=== PATIENT | female | born 1980 | race Caucasian/White ===

== ENCOUNTER 2022-01-14 08:58 | Emergency (ER) | payer MEDICAID ==
[~2022-01-14] VITALS: Ht 170.2 cm; Wt 68.0 kg
[2022-01-14 09:00] VITALS: BP_SYST 126
--- NOTE | 2022-01-14 09:12 | NUR ---
Pt to bed #3 coming from home ambualtory with steady gait. C/o lower abdominal pain that started at 8am today abruptly non-radiating. rates pain 10/10 and is intermittent. Pt is allergic to Penicillin and latex. Has hx of hyperlipidemia. A&Ox4. Connected pt to compliance monitor and VSS. No chest pain and no sob. Denies n/v. Bed in lowest position.
--- NOTE | 2022-01-14 09:39 | NUR ---
Dr. Jacques at bedside examining pt.
[2022-01-14] MEDS ORDERED: ONDANSETRON HCL 4 MG/2 ML VIAL IVP ONE (09:45)
[2022-01-14] MEDS ORDERED: KETOROLAC TROMETHAMINE 15 MG VIAL IVP ONE (09:45)
--- NOTE | 2022-01-14 09:49 | NUR ---
automotive lube technician at bedside drawing blood.
--- NOTE | 2022-01-14 10:01 | NUR ---
20g IV placed on Left AC using aseptic technique. Saline lock.
[2022-01-14 10:39] LABS: CALCIUM 9.8 mg/dL (8.4-11.0); CREATININE 0.72 mg/dL (0.55-1.30); POTASSIUM 4.3 mmol/L (3.5-5.1)
[2022-01-14 10:40] LABS: BASOPHILS % (AUTO) 0.4 % (0.0-2.0); EOSINOPHILS # (AUTO) 0.1 K/uL (0.0-0.4); HEMATOCRIT 38.9 % (36-48); HEMOGLOBIN 13.1 g/dL (12.0-16.0); LYMPHOCYTES % (AUTO) 16.5 % (20.5-51.5); MEAN CORPUSCULAR HEMOGLOBIN 30 pg (27-31); MEAN CORPUSCULAR HGB CONC 34 % (32-36); MEAN CORPUSCULAR VOLUME 89 fL (79.0-98.0); MONOCYTES # (AUTO) 0.5 K/uL (0.0-1.0); MONOCYTES % (AUTO) 8.3 % (1.7-9.3); NEUTROPHILS # (AUTO) 4.6 K/uL (1.8-7.7); NEUTROPHILS % (AUTO) 73.8 % (40.0-70.0); PLATELET COUNT (AUTO) 198 K/uL (130-430); RED CELL DISTRIBUTION WIDTH 13.6 % (9.0-15.0); WHITE BLOOD COUNT (AUTO) 6.2 K/uL (4.8-10.8)
[2022-01-14 10:45] LABS: ALBUMIN 3.6 g/dL (3.4-4.8); TOTAL BILIRUBIN 0.4 mg/dL (0.0-1.0)
--- NOTE | 2022-01-14 11:03 | NUR ---
Consent for CT Abdomen with contrast obtained.
[2022-01-14 11:23] LABS: BILIRUBIN,URINE NEGATIVE (NEGATIVE); BLOOD, URINE NEGATIVE (NEGATIVE); CLARITY/URINE SL CLOUDY (CLEAR); COLOR,URINE YELLOW (YELLOW); GLUCOSE,URINE NEGATIVE (NEGATIVE); KETONES,URINE NEGATIVE (NEGATIVE); LEUKOCYTE ESTERASE ,URINE NEGATIVE (NEGATIVE); NITRITE, URINE NEGATIVE (NEGATIVE); PROTEIN URINE NEGATIVE (NEGATIVE); UROBILINOGEN,URINE 0.2 (0.2-1.0)
[2022-01-14] MEDS ORDERED: PROC10TA13 PO (12:08)
[2022-01-14] MEDS ORDERED: ONDA-8 TL (12:08)
[2022-01-14] MEDS ORDERED: PROCHLORPERAZINE MALEATE 10 MG TABLET PO ONE (12:15)
[2022-01-14] MEDS ORDERED: DIPHENHYDRAMINE HCL 25 MG CAPSULE PO ONE (12:15)
--- NOTE | 2022-01-14 12:21 | NUR ---
IV removed using aseptic technique. Pt has no c/o. VSS.
[2022-01-14 12:23] VITALS: BP_SYST 128
--- NOTE | 2022-01-14 12:30 | NUR ---
Patient given written and verbal discharge instructions and verbalizes understanding. ER MD discussed with patient the results and treatment provided. Patient in stable condition. ID arm band removed. IV catheter removed intact and dressing applied, no active bleeding. Rx of Compazine and Zofran given. Patient educated on pain management and to follow up with PMD. Pain Scale . Opportunity for questions provided and answered. Medication side effect fact sheet provided.
== END 2022-01-14 12:30 | disposition home or self-care (01) ==
LOC: SED 08:58
DX: K52.9 Noninfective gastroenteritis and colitis, unspecified (principal); Z88.0 Allergy status to penicillin; Z79.899 Other long term (current) drug therapy
CPT/HCPCS: 36415; 74177; 76376; 80053; 81003; 81025; 83690; 85025; 96374; 96375; 99285; J1885; J2405; Q0163; Q0164; Q9967

== ENCOUNTER 2023-05-28 15:30 | Emergency (ER) | payer MEDICAID ==
[~2023-05-28] VITALS: Ht 170.2 cm; Wt 61.2 kg
[2023-05-28 15:30] VITALS: BP_SYST 135; PULSE 76; RESP 18; TEMP 97.8; O2SAT 97
[~2023-05-28 15:30] MED LIST: ALBU8.5H8 INH; ASPI-1393 PO; LEVO-62 PO; NITSL SL; ONDA-8 TL; PROC10TA13 PO; SIMV-341 PO
--- NOTE | 2023-05-28 15:30 | NUR ---
RECEIVED PT FROM [facility]IE[facility] WILKINSON. PT BIBS. PT STATES FELL AND INJURED RIGHT THUMB, STATES SHE BENT IT BACKWARDS, REDNESS AND SWELLING NOTED. SKIN INTACT. VSS.
--- NOTE | 2023-05-28 15:35 | NUR ---
DR. MA AT BEDSIDE TO ASSESS PT.
[2023-05-28] MEDS ORDERED: IBUP-1969 PO (17:36)
--- NOTE | 2023-05-28 17:55 | NUR ---
EMT BEDSIDE SPLINTING THUMB AFFIXING VELCRO SPLINT WITH CAP RETURN LESS THAN 3 SECONDS.
--- NOTE | 2023-05-28 18:23 | NUR ---
Patient given written and verbal discharge instructions and verbalizes understanding. ER MD discussed with patient the results and treatment provided. Patient in stable condition. ID arm band removed. Rx of IBUPROFEN AND ULTRAM given. Patient educated on pain management and to follow up with PMD. Opportunity for questions provided and answered. Medication side effect fact sheet provided.
[2023-05-28 18:25] VITALS: BP_SYST 135; PULSE 76; RESP 18; TEMP 97.8; O2SAT 97
== END 2023-05-28 18:23 | disposition home or self-care (01) ==
LOC: SED 15:30
DX: S63.621A Sprain of interphalangeal joint of right thumb, initial encounter (principal); E78.00 Pure hypercholesterolemia, unspecified; Z88.0 Allergy status to penicillin; Z88.2 Allergy status to sulfonamides; Z88.5 Allergy status to narcotic agent; Z91.040 Latex allergy status; Z79.899 Other long term (current) drug therapy; X50.9XXA Other and unspecified overexertion or strenuous movements or postures, initial encounter; Y93.89 Activity, other specified; Y92.89 Other specified places as the place of occurrence of the external cause; Y99.8 Other external cause status
CPT/HCPCS: 73140-TC; 99283

== ENCOUNTER 2023-11-18 09:34 | Emergency (ER) | payer OTHER ==
[~2023-11-18] VITALS: Ht 170.2 cm; Wt 72.6 kg
[~2023-11-18 09:34] MED LIST changes: +IBUP-1969 PO; -PROC10TA13 PO; +PROC10TA29 PO
[2023-11-18 10:12] VITALS: BP_SYST 117; PULSE 88; RESP 19; TEMP 98.9; O2SAT 98
[2023-11-18] MEDS ORDERED: ZAN4 PO (13:18)
[2023-11-18] MEDS ORDERED: IBUP-1969 PO (13:30)
[2023-11-18 13:41] VITALS: BP_SYST 117; PULSE 88; RESP 19; TEMP 98.9; O2SAT 98
== END 2023-11-18 13:30 | disposition home or self-care (01) ==
LOC: SED 09:34
DX: S30.0XXA Contusion of lower back and pelvis, initial encounter (principal); S10.83XA Contusion of other specified part of neck, initial encounter; E78.00 Pure hypercholesterolemia, unspecified; Z88.0 Allergy status to penicillin; Z88.5 Allergy status to narcotic agent; Z88.6 Allergy status to analgesic agent; Z91.040 Latex allergy status; Z79.899 Other long term (current) drug therapy; V89.2XXA Person injured in unspecified motor-vehicle accident, traffic, initial encounter; Y93.89 Activity, other specified; Y92.89 Other specified places as the place of occurrence of the external cause; Y99.8 Other external cause status
CPT/HCPCS: 72040-TC; 72080-TC; 99284